=== PATIENT | female | born 1995 | race Caucasian/White ===

== ENCOUNTER 2024-02-29 19:33 | Emergency (ER) | payer OTHER, SELFPAY ==
--- NOTE | ~2024-02-29 | CT_ITS ---
CT abdomen pelvis w con Ordering provider: Migeul Curran APRN History: 28 years Female with . lower abdomen pain/gi bleed . Comparison: None. Technique: CT abdomen and pelvis with IV and without oral contrast. Automated exposure control and it erative reconstruction technique were employed. The dose-length product was 1168.15 mGy-cm. 100 mL Om nipaque 350 was given IV. Findings: VISUALIZED LOWER CHEST: Minimal dependent atelectatic changes. UPPER ABDOMINAL ORGANS: Liver: Minimal fat infiltration Gallbladder: Normal. Spleen: Normal. Stomach/duodenum: Small sliding hiatus hernia. Pancreas: Normal. Adrenals: Normal. Kidneys: Small right kidney cyst PELVIC ORGANS: The bladder is normal. Uterus: Normal.Prominent left ovary with hyperdense area sugge stive of ruptured follicle. BOWEL AND MESENTERY: Colon: No evidence of diverticulitis. Normal appendix. Small Bowel: Normal. No obstruction. Peritoneum/mesentery: No free air or free fluid. No mesenteric lymphadenopathy. Small mesenteric lymp h nodes. RETROPERITONEUM: Normal aorta. No retroperitoneal lymphadenopathy. MUSCULOSKELETAL: Superficial soft tissues: The superficial soft tissues are normal. Bones: Normal spine. IMPRESSION: 1. No acute abdominal process with no evidence of appendicitis, diverticulitis or intestinal obstruc tion. 2. Small sliding hiatus hernia. Reviewed, dictated and finalized at location A. IMPRESSION: 1. No acute abdominal process with no evidence of appendicitis, diverticulitis or intestinal obstruction. 2. Small sliding hiatus hernia.
[2024-02-29 19:54] VITALS: BP 134/94; PULSE 82; RESP 18; TEMP 37.1; O2SAT 99
--- NOTE | 2024-02-29 19:54 | ED.ABDPAIN ---
HPI - Abdominal Pain General Chief Complaint: GI Bleed Stated Complaint: abd pain, bloody stool Time Seen by Provider: 02/29/24 19:51 Source: patient Mode of arrival: ambulatory Limitations: no limitations History of Present Illness HPI narrative: Amanda is a 28-year-old female patient presenting to the ER today with complaints of lower abdominal pain and having bloody stools. She reports she has had bloody stools about every other day. Denies any fever, chills, or body aches. Also reports some rectal discomfort. No history of hemorrhoids or anal fissure. Reports her stools are hard and she has to strain to pass stool. Related Data Allergies Allergy/AdvReac Type Severity Reaction Status Date / Time No Known Allergies Allergy Verified 02/29/24 20:33 Review of Systems Review of Systems: Pertinent positives per HPI. Patient denies any fever, chills, rash, headache, visual changes, dizziness, cough, runny nose, sore throat, shortness of breath, chest pain, palpitations, nausea, vomiting, diarrhea, constipation, abdominal pain, or any urinary issues. PMFSH Comments At the time of my signature, I reviewed and agree with the nursing past medical, surgical, social, and family history. There is no relevant family history pertinent to the patient complaint. Exam Narrative: General: Well-developed, well nourished, in no apparent distress. Head: Normocephalic, atraumatic. Cardio: Regular rate and rhythm, s1 and s2 normal, no murmur appreciated. Resp: Clear to auscultation bilaterally, no rhonchi, rales, wheezing or rubs. Abdomen: Soft, pliable, bowel sounds present in all quadrants, tender to palpation over the bilateral lower abdomen, no organomegly, no CVAT tenderness. Course Course Emergency Course: Portions of this record may have been created with voice recognition software. Vital Signs Vital signs: Vital Signs Temperature 37.1 C 02/29/24 19:54 Pulse Rate 82 02/29/24 19:54 Respiratory Rate 18 02/29/24 19:54 Blood Pressure 134/94 H 02/29/24 19:54 Pulse Oximetry 99 02/29/24 19:54 Oxygen Delivery Room Air 02/29/24 19:54 Temperature 37.1 C 02/29/24 19:54 Pulse Rate 81 02/29/24 20:24 Respiratory Rate 22 H 02/29/24 20:24 Blood Pressure 141/85 H 02/29/24 20:24 Pulse Oximetry 100 02/29/24 20:24 Oxygen Delivery Room Air 02/29/24 19:54 Vital signs reviewed MDM - Abdominal Pain MDM Narrative Medical decision making narrative: At the time of visit patient is resting comfortably on the exam table. Patient appears to be nontoxic. Labs: CBC shows white blood cell count of 7.6, H&H in of 11.4 and 37.8, platelet count is 332, anticoagulation states within normal limits, chemistry panel unremarkable other than AST of 42 and ALT of 56, urine is negative. Diagnostics: CT abdomen shows no acute intra-abdominal process. Small sliding hiatal hernia Plan: I suspect patient has a external hemorrhoid that may be causing bleeding due to straining and passing hard stool. Repeat hemoglobin was 12.1. Supportive measures were discussed with the patient and they voiced understanding discharge instructions and agrees to treatment plan. Return precautions reviewed Differential Diagnosis Differential diagnosis: Likely abdominal pain, diverticulitis, gastroenteritis and other ( Colitis, hemorrhoid, anal fissure) Lab Data 02/29/24 20:23 02/29/24 20:23 Labs: Lab Results 02/29/24 02/29/24 Range/Units 20:19 20:23 WBC 7.6 (4.5-10.0) K/mm3 RBC 5.07 (4.2-5.4) M/mm3 Hgb 11.4 L (12.0-15.0) g/dL Hct 37.8 (37.0-47.0) % MCV 74.6 L (80-100) fl MCH 22.5 L (26-34) pg MCHC 30.2 L (32-36) g/dl RDW 18.7 H (11.5-14.5) % Plt Count 332 (150-375) k/mm3 MPV 10.3 (7.4-10.4) fl Immature Gran % (Auto) 0.4 (0-0.5) % Neut % (Auto) 62.9 (45.5-73.1) % Lymph % (Auto) 26.8 (18.3-44.2) % [place] % (Auto) 6.9 (2.6
[2024-02-29 20:11] VITALS: BP 147/85; PULSE 77; RESP 22; O2SAT 99
[2024-02-29 20:21] LABS: BEDSIDEPREGUCG Negative
[2024-02-29 20:24] VITALS: BP 141/85; PULSE 81; RESP 22; O2SAT 100
[2024-02-29 20:31] LABS: Basophils Absolute Auto 0.1 K/mm3 (0.0-0.1); Basophils Percent Auto 0.8 % (0.2-1.2); Eosinophils Absolute Auto 0.2 K/mm3 (0-0.3); Eosinophils Percent Auto 2.2 % (0-4.4); Hematocrit 37.8 % (37.0-47.0); Hemoglobin 11.4 g/dL (12.0-15.0); Immature Granulocyte Absolute 0.03 K/mm3 (0.00-0.031); Immature Granulocyte Percent A 0.4 % (0-0.5); Lymphocytes Absolute Auto 2.03 K/mm3 (0.9-3.2); Lymphocytes Percent Auto 26.8 % (18.3-44.2); Mean Corpuscular HGB Conc 30.2 g/dl (32-36); Mean Corpuscular Hemoglobin 22.5 pg (26-34); Mean Corpuscular Volume 74.6 fl (80-100); Mean Platelet Volume 10.3 fl (7.4-10.4); Monocytes Absolute Auto 0.5 K/mm3 (0.1-0.6); Monocytes Percent Auto 6.9 % (2.6-8.5); Neutrophils Absolute Auto 4.8 K/mm3 (1.3-6.7); Neutrophils Percent Auto 62.9 % (45.5-73.1); Platelet Count Result 332 k/mm3 (150-375); Red Blood Count 5.07 M/mm3 (4.2-5.4); Red Cell Distribution Width 18.7 % (11.5-14.5); White Blood Count 7.6 K/mm3 (4.5-10.0)
[2024-02-29 20:44] LABS: Microcytosis 1+ (NORMAL); Platelet Estimate Adequate (Adequate)
[2024-02-29 20:45] LABS: Ovalocytes 1+; Schistocytes None Seen
[2024-02-29 20:47] LABS: Alanine Aminotransferase 56 U/L (6-35); Albumin Level 4.7 g/dL (3.5-5.1); Alkaline Phosphatase 87 U/L (38-126); Anion Gap 11 mmol/L (4-12); Aspartate Amino Transferase 42 U/L (14-36); Bilirubin,Total 0.3 mg/dL (0.2-1.3); Blood Urea Nitrogen 12 mg/dL (7-17); Calcium 9.1 mg/dL (8.4-10.2); Carbon Dioxide 28 mmol/L (22-30); Chloride 99 mmol/L (98-107); Estimated CRCL calculation 114 ml/min; Estimated Glomerular Filt Rate > 60; Glucose 94 mg/dL (65-110); Potassium 3.9 mmol/L (3.4-5.0); Sodium 138 mmol/L (137-145)
[2024-02-29 20:53] LABS: INR 0.9; Prothrombin Time 12.9 Seconds (11.1-14.7)
[2024-02-29 20:54] LABS: Partial Thromboplastin Time 29.3 Seconds (22.3-36.8)
[2024-02-29 22:33] LABS: Hematocrit 39.3 % (37.0-47.0); Hemoglobin 12.1 g/dL (12.0-15.0)
[2024-02-29 23:00] VITALS: BP 140/82; PULSE 75; RESP 19; O2SAT 100
== END 2024-02-29 23:17 | disposition home or self-care (01) ==
PROVIDERS: Emergency Provider Nurse Practitioner Family
DX: K64.9 Unspecified hemorrhoids (principal); K62.5 Hemorrhage of anus and rectum
CPT/HCPCS: 36415; 74177; 80053; 81025; 85014; 85018; 85025; 85610; 85730; 86850; 86900; 86901; 99284; Q9967